=== PATIENT | male | born 2000 | race Caucasian/White ===

== ENCOUNTER 2018-12-11 21:40 | Emergency (ER) | payer SELFPAY ==
[~2018-12-11] VITALS: Ht 177.8 cm; Wt 79.0 kg
[2018-12-11] MEDS ORDERED: ONDANSETRON HCL 4MG/2ML INJ IV ONE (22:45)
[2018-12-11] MEDS ORDERED: SODIUM CHLORIDE 0.9% 1,000 ML IV ONE (22:45)
[2018-12-11 23:12] LABS: BASOPHILS % 0.3 % (0.0-2.0); HEMATOCRIT. 43.5 % (42.0-52.0); HEMOGLOBIN. 14.5 g/dL (14.0-18.0); LYMPHOCYTES % 10.5 % (20.0-50.0); MEAN CORPUSCULAR HEMOGLOBIN 29.5 pg (28.0-32.0); MEAN CORPUSCULAR VOLUME 88.8 fL (80.0-94.0); MEAN PLATELET VOLUME 6.8 fl (7.4-10.4); MONOCYTES % 2.2 % (2.0-8.0); PLATELET 258 x1000/uL (130-400); RED CELL DISTRIBUTION WIDTH 13.6 % (11.6-14.6)
[2018-12-11] MEDS ORDERED: LORAZEPAM 2MG/ML CPJ IV ONE ×2 (23:15→23:45)
[2018-12-11 23:17] LABS: CHLORIDE 105 mEq/L (98-107)
[2018-12-11 23:22] LABS: ETHANOL BLOOD 248 mg/dL
[2018-12-12 00:22] LABS: CLARITY URINE CLEAR (CLEAR); COLOR URINE YELLOW (YELLOW); KETONES URINE NEGATIVE (NEGATIVE); LEUKOCYTE ESTERASE URINE NEGATIVE (NEGATIVE); NITRITE URINE NEGATIVE (NEGATIVE); OCCULT BLOOD URINE TRACE (NEGATIVE); PH URINE 5.5 (4.5-8.0); PROTEIN URINE NEGATIVE (NEGATIVE); SPECIFIC GRAVITY URINE 1.012 (1.005-1.030); UROBILINOGEN URINE 0.2 E.U./dL (0.2-1.0)
[2018-12-12 00:45] LABS: *AMPHETAMINES SCREEN URINE NEGATIVE (NEGATIVE); *BARBITURATES SCREEN URINE NEGATIVE (NEGATIVE); *BENZODIAZEPINES SCREEN URINE NEGATIVE (NEGATIVE); *COCAINE SCREEN URINE NEGATIVE (NEGATIVE)
[2018-12-12 00:46] LABS: CANNABINOID URINE SCREEN PRESUMTIVE POSITIVE (NEGATIVE); METHADONE URINE SCREEN NEGATIVE (NEGATIVE); OPIATES URINE SCREEN NEGATIVE (NEGATIVE); PHENCYCLIDINE URINE SCREEN NEGATIVE (NEGATIVE)
[2018-12-12 07:11] VITALS: BP 110/79
== END 2018-12-12 07:12 | disposition home or self-care (01) ==
LOC: ER 21:40
DX: T51.0X1A Toxic effect of ethanol, accidental (unintentional), initial encounter (principal); G92 Toxic encephalopathy; R11.10 Vomiting, unspecified; I10 Essential (primary) hypertension; Y92.038 Other place in apartment as the place of occurrence of the external cause
CPT/HCPCS: 36415; 70450; 80053; 80305; 80307; 80320; 80329; 81003; 85025; 96361; 96374; 96375; 96376; 99284; J2060; J2405; J7030; A4315; G0480